=== PATIENT | male | born 1980 | race Caucasian/White ===

== ENCOUNTER 2020-06-02 12:59 | Emergency (ER) | payer OTHER ==
[2020-06-02 13:17] VITALS: BP 132/77; PULSE 79; TEMP 99.5; BMI 27.9
[2020-06-02] MEDS ORDERED: LIDOCAINE 2%/EPINEPHRINE 1:100000 (50 ML MD VIAL) INF ONE (13:56)
[2020-06-02] MEDS ORDERED: LIDO 2%/EPI 1:200000 PRESRVFRE (20 ML SDVIAL) ONE (13:59)
== END 2020-06-02 17:07 | disposition home or self-care (01) ==
LOC: FER 12:59
PROC: 0HQGXZZ Repair Left Hand Skin, External Approach (ICD-10-PCS; principal; 2020-06-02)
DX: S41.111A Laceration without foreign body of right upper arm, initial encounter (principal)
CPT/HCPCS: 73090-TC-LT-FY; 99283-25